=== PATIENT | male | born 1970 | race Caucasian/White ===

== ENCOUNTER 2017-03-31 11:20 | Emergency (ER) | payer OTHER ==
[~2017-03-31] VITALS: Ht 177.8 cm; Wt 60.3 kg
--- NOTE | ~2017-03-31 | EKG ---
[place] [address] [facility] [employer] [place] [address] ELECTROCARDIOGRAM REPORT Name: JOAQUIN CUEVAS Room #: [facility]#: [id number] Admission: 03/31/17 Attend Phys: Discharge: 03/31/17 Date of : 72 Report #: [id number] THIS REPORT FOR: //name// 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 : 1970 Requested By: Jesus Sandy Order Number: [id number] MD: Dakotah Roberson Measurements Intervals [place] Rate: 82 P: 71 VT: 153 QRS: 80 QRSD: 106 T: 60 QT: 379 QTc: 443 Interpretive Statements Sinus rhythm Biatrial enlargement Left ventricular hypertrophy ST elev, probable normal early repol pattern Baseline wander in lead(s) V2 No previous ECG available for comparison Electronically Signed On 03-31-2017 22:41:31 CDT by Dakotah Roberson [email or web address] <ELECTRONICALLY SIGNED> By: Dakotah Roberson MD 03/31/17 2241 112 20 Dakotah Roberson MD /LORI
[2017-03-31 11:58] LABS: ANION GAP 12 mmol/L (7-16); BUN 7 mg/dL (7-18); CALCIUM 9.1 mg/dL (8.5-10.1); CHLORIDE 98 mmol/L (98-107); CO2 24 mmol/L (21-32); CREATININE 0.8 mg/dL (0.7-1.3); GLUCOSE 113 mg/dL (74-106); SODIUM 134 mmol/L (136-145)
[2017-03-31 12:01] LABS: ABSOLUTE NEUTROPHILS 7.5 thou/uL (1.4-8.2); BASOPHILS 1.2 % (0.0-2.0); EOSINOPHILS 0.6 % (0.0-3.0); HEMATOCRIT 47.6 % (42.0-52.0); HEMOGLOBIN 16.6 gm/dL (14.0-18.0); LYMPHOCYTES 16.5 % (24.0-44.0); MCV 97.2 fL (80.0-100.0); MONOCYTES 6.6 % (1.0-8.0); PLATELET COUNT 268 thou/uL (150-400); POLYS 75.1 % (36.0-66.0); RDW 14.1 % (10.5-14.5)
[2017-03-31 12:03] LABS: MANUAL DIFF NO
[2017-03-31 12:13] LABS: ALBUMIN 4.4 g/dL (3.4-5.0); ALKALINE PHOSPHATASE 59 U/L (46-116); DIRECT BILIRUBIN < 0.1 mg/dL (<0.1-0.3); NT-PRO BRAIN NAT PEPTIDE 23 pg/mL (<300); SGOT 24 U/L (15-37); SGPT 21 U/L (30-65); TOTAL BILIRUBIN 0.6 mg/dL (<0.1-1.0); TOTAL PROTEIN 7.4 g/dL (6.4-8.2); TROPONIN-I < 0.04 ng/mL (<0.04-0.07)
[2017-03-31 12:15] LABS: AMP/METHAMP Negative (Negative); BARBITURATES Negative (Negative); BENZODIAZEPINES Negative (Negative); COCAINE Negative (Negative); METHADONE Negative (Negative); OPIATES Negative (Negative); PCP Negative (Negative); THC POSITIVE (Negative)
[2017-03-31] MEDS ORDERED: HYDROXYZINE HCL25 M1 PO (14:08)
[2017-03-31 14:31] VITALS: BP 120/68
== END 2017-03-31 14:34 | disposition home or self-care (01) ==
LOC: ER 11:20
PROVIDERS: Physician Assistant
DX: R07.9 Chest pain, unspecified (principal); R12 Heartburn; F41.9 Anxiety disorder, unspecified; F12.10 Cannabis abuse, uncomplicated; F17.210 Nicotine dependence, cigarettes, uncomplicated